=== PATIENT | male | born 1980 | race Caucasian/White ===

== ENCOUNTER → 2016-12-03 | Outpatient (CLI) | payer BC | END | disposition home or self-care (01) | LOC: LAB.O 08:52 | PROVIDERS: ATTEND Orthopaedic Surgery | DX: Z79.891 Long term (current) use of opiate analgesic (principal) ==

== ENCOUNTER → 2017-05-11 | Outpatient (CLI) | payer BC | END | disposition home or self-care (01) | LOC: LAB.O 09:43 | PROVIDERS: ATTEND Orthopaedic Surgery | DX: Z51.81 Encounter for therapeutic drug level monitoring (principal) ==

== ENCOUNTER → 2017-08-08 | Outpatient (CLI) | payer BC | LOC: LAB.O 09:43 | PROVIDERS: ATTEND Orthopaedic Surgery | DX: Z51.81 Encounter for therapeutic drug level monitoring (principal) ==

== ENCOUNTER → 2017-11-25 | Outpatient (CLI) | payer BC | LOC: LAB.O 10:51 | PROVIDERS: ATTEND Orthopaedic Surgery | DX: Z51.81 Encounter for therapeutic drug level monitoring (principal) ==

== ENCOUNTER → 2018-01-19 | Outpatient (CLI) | payer BC | LOC: LAB.O 10:25 | PROVIDERS: ATTEND Orthopaedic Surgery | DX: Z51.81 Encounter for therapeutic drug level monitoring (principal) ==

== ENCOUNTER → 2018-02-20 | Outpatient (CLI) | payer BC | LOC: LAB.O 10:13 | PROVIDERS: ATTEND Orthopaedic Surgery | DX: Z51.81 Encounter for therapeutic drug level monitoring (principal) ==

== ENCOUNTER → 2018-03-23 | Outpatient (CLI) | payer BC | LOC: LAB.O 09:55 | PROVIDERS: ATTEND Orthopaedic Surgery | DX: Z51.81 Encounter for therapeutic drug level monitoring (principal) ==

== ENCOUNTER → 2018-04-07 | Outpatient (CLI) | payer BC | LOC: LAB.O 11:52 | PROVIDERS: ATTEND Orthopaedic Surgery | DX: Z51.81 Encounter for therapeutic drug level monitoring (principal) ==

== ENCOUNTER → 2018-04-20 | Outpatient (CLI) | payer BC | LOC: LAB.O 10:13 | PROVIDERS: ATTEND Orthopaedic Surgery | DX: Z51.81 Encounter for therapeutic drug level monitoring (principal) ==

== ENCOUNTER → 2018-07-20 | Outpatient (CLI) | payer BC | LOC: LAB.O 10:33 | PROVIDERS: ATTEND Orthopaedic Surgery | DX: Q65.89 Other specified congenital deformities of hip (principal) ==

== ENCOUNTER → 2018-09-18 | Outpatient (CLI) | payer BC | LOC: LAB.O 10:16 | PROVIDERS: ATTEND Orthopaedic Surgery | DX: Q65.89 Other specified congenital deformities of hip (principal) ==

== ENCOUNTER → 2018-11-17 | Outpatient (CLI) | payer BC | LOC: LAB.O 10:41 | PROVIDERS: ATTEND Orthopaedic Surgery | DX: Q65.89 Other specified congenital deformities of hip (principal) ==

== ENCOUNTER → 2019-01-17 | Outpatient (CLI) | payer BC | LOC: LAB.O 10:20 | PROVIDERS: ATTEND Orthopaedic Surgery | DX: Q65.89 Other specified congenital deformities of hip (principal) ==

== ENCOUNTER → 2019-03-19 | Outpatient (CLI) | payer BC | LOC: LAB.O 11:30 | PROVIDERS: ATTEND Orthopaedic Surgery | DX: Q65.89 Other specified congenital deformities of hip (principal) ==

== ENCOUNTER → 2019-03-20 | Outpatient (CLI) | payer BC | LOC: LAB.O 11:26 | PROVIDERS: ATTEND Orthopaedic Surgery | DX: Q65.89 Other specified congenital deformities of hip (principal) ==

== ENCOUNTER → 2019-04-17 | Outpatient (CLI) | payer BC | LOC: LAB.O 09:52 | PROVIDERS: ATTEND Orthopaedic Surgery | DX: Q65.89 Other specified congenital deformities of hip (principal) ==

== ENCOUNTER → 2019-06-22 | Outpatient (CLI) | payer BC | LOC: LAB.O 09:47 | PROVIDERS: ATTEND Orthopaedic Surgery | DX: Q65.89 Other specified congenital deformities of hip (principal) ==

== ENCOUNTER → 2019-10-19 | Outpatient (CLI) | payer BC ==
--- NOTE | 2019-10-19 11:29 | RAD ---
EXAM DESCRIPTION: Pelvis CLINICAL HISTORY: HIP PN COMPARISON: 15 Sep 2015 TECHNIQUE: AP pelvis FINDINGS: Mild acetabular osteophyte formation is observed in both hips. No fracturing is detected. The acetabulums are shallow bilaterally. They remain unchanged from the previous exam. 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 Electronically signed by: Bam Lewis MD 10/19/2019 11:27 AM CDT
--- NOTE | 2019-10-19 11:29 | RAD ---
EXAM DESCRIPTION: Hip,Left 2 Views CLINICAL HISTORY: HIP PN COMPARISON: None. TECHNIQUE: 2 views left FINDINGS: Mild acetabular osteophyte formation is observed. The acetabulum is shallow. No fracture is detected. No pelvic injury is seen. IMPRESSION: Mild degenerative changes are observed in the left hip. Electronically signed by: Bam Lewis MD 10/19/2019 11:28 AM CDT
== END ==
LOC: RAD 10:05
PROVIDERS: ATTEND Orthopaedic Surgery
DX: M16.0 Bilateral primary osteoarthritis of hip (principal); Q65.89 Other specified congenital deformities of hip

== ENCOUNTER → 2019-12-18 | Outpatient (CLI) | payer BC | LOC: LAB.O 10:51 | PROVIDERS: ATTEND Orthopaedic Surgery | DX: Q65.89 Other specified congenital deformities of hip (principal) ==

== ENCOUNTER → 2020-03-17 | Outpatient (CLI) | payer BC | LOC: LAB 10:44 | PROVIDERS: ATTEND Orthopaedic Surgery | DX: Q65.89 Other specified congenital deformities of hip (principal) ==